=== PATIENT | female | born 1965 | race Asian ===

== ENCOUNTER 2017-04-11 10:35 | Outpatient (CLI) | payer OTHER | END 2017-04-11 12:15 | disposition home or self-care (01) | LOC: RAD 10:35 | DX: R60.0 Localized edema (principal) ==

== ENCOUNTER 2018-01-16 13:37 | Outpatient (CLI) | payer OTHER | END 2018-01-16 18:00 | disposition home or self-care (01) | LOC: RAD 13:37 | DX: N95.8 Other specified menopausal and perimenopausal disorders (principal) ==

== ENCOUNTER 2018-07-10 07:18 | Day surgery (SDC) | payer OTHER | END 2018-07-10 10:25 | disposition home or self-care (01) | LOC: OR 07:18 | PROC: 0DJD8ZZ Inspection of Lower Intestinal Tract, Via Natural or Artificial Opening Endoscopic (ICD-10-PCS; principal; 2018-07-10) | DX: D64.9 Anemia, unspecified (principal); K64.8 Other hemorrhoids; Z12.11 Encounter for screening for malignant neoplasm of colon | CPT/HCPCS: J2001; J2250; J2704 ==

== ENCOUNTER 2019-07-09 10:45 | Outpatient (CLI) | payer OTHER | END 2019-07-09 20:17 | disposition home or self-care (01) | LOC: MAMMO 10:45 | DX: Z12.31 Encounter for screening mammogram for malignant neoplasm of breast (principal) ==

== ENCOUNTER 2019-07-23 10:48 | Outpatient (CLI) | payer OTHER | END 2019-07-23 19:46 | disposition home or self-care (01) | LOC: US 10:48 → MAMMO 11:00 → US 19:46 | DX: R92.8 Other abnormal and inconclusive findings on diagnostic imaging of breast (principal) ==

== ENCOUNTER 2020-01-08 12:55 | Outpatient (CLI) | payer OTHER | END 2020-01-08 22:33 | disposition home or self-care (01) | LOC: MAMMO 12:55 | DX: R92.8 Other abnormal and inconclusive findings on diagnostic imaging of breast (principal) ==

== ENCOUNTER 2020-11-10 13:53 | Outpatient (CLI) | payer OTHER | END 2020-11-10 21:58 | disposition home or self-care (01) | LOC: MAMMO 13:53 | PROVIDERS: ATTEND Nurse Practitioner Family | DX: R92.8 Other abnormal and inconclusive findings on diagnostic imaging of breast (principal) | CPT/HCPCS: G0279 ==

== ENCOUNTER 2021-05-24 10:47 | Outpatient (CLI) | payer OTHER | END 2021-05-24 21:01 | disposition home or self-care (01) | LOC: MAMMO 10:47 | PROVIDERS: ATTEND Family Medicine | DX: R92.8 Other abnormal and inconclusive findings on diagnostic imaging of breast (principal); Z12.31 Encounter for screening mammogram for malignant neoplasm of breast ==

== ENCOUNTER 2022-01-17 08:48 | Outpatient (CLI) | payer OTHER | END 2022-01-17 19:03 | disposition home or self-care (01) | LOC: US 08:48 | PROVIDERS: ATTEND Nurse Practitioner Family | DX: R10.11 Right upper quadrant pain (principal) ==

== ENCOUNTER 2022-02-01 10:40 | Outpatient (CLI) | payer OTHER | END 2022-02-01 19:11 | disposition home or self-care (01) | LOC: RAD 10:40 | PROVIDERS: ATTEND Nurse Practitioner Family | DX: R74.01 Elevation of levels of liver transaminase levels (principal); Z13.820 Encounter for screening for osteoporosis; N95.8 Other specified menopausal and perimenopausal disorders ==

== ENCOUNTER 2022-05-26 09:29 | Outpatient (CLI) | payer OTHER | END 2022-05-26 19:41 | disposition home or self-care (01) | LOC: MAMMO 09:29 | PROVIDERS: ATTEND Nurse Practitioner Family | DX: Z12.31 Encounter for screening mammogram for malignant neoplasm of breast (principal) ==

== ENCOUNTER 2023-04-26 08:53 | Outpatient (CLI) | payer OTHER | END 2023-04-26 20:07 | disposition home or self-care (01) | LOC: US 08:53 | PROVIDERS: ATTEND Internal Medicine Gastroenterology | DX: R94.5 Abnormal results of liver function studies (principal) | CPT/HCPCS: 36415; 80074; 82172; 82247; 82465; 82947; 82977; 83010; 83516; 83883; 84450; 84460; 84478; 86038 ==